=== PATIENT | female | born 1975 | race Caucasian/White ===

== ENCOUNTER 2017-04-16 08:09 | Emergency (ER) | payer OTHER, SELFPAY ==
[2017-04-16 08:14] VITALS: BP 158/83; PULSE 77; RESP 16; TEMP 36.8; O2SAT 97; BMI 43.8
--- NOTE | 2017-04-16 08:23 | XR_ITS ---
XR acute abdomen series HISTORY: ITS.REASON: EPIGASTRIC PAIN ORDERING PHYSICIAN: Zari Roldan MD PATIENT AGE: 42 years COMPARISON: None FINDINGS: A frontal view of the chest shows no acute finding. A small metallic density is present in the right axilla. There is a large laminated calcification in the right upper quadrant measuring 3.5 cm consistent with a gallstone. The bowel gas pattern is unremarkable. No evidence of intestinal obstruction or free air. A tubal occlusion device is present in the right pelvic region. There is mild osteitis pubis. IMPRESSION: Cholelithiasis
[2017-04-16 08:38] LABS: Basophils # 0.1 K/mm3 (0-0.2); Basophils % 0.5 % (0.1-2.0); Eosinophils # 0.3 K/mm3 (0.0-0.4); Eosinophils % 2.3 % (0.1-12.0); Hematocrit 47.1 % (37.0-47.0); Hemoglobin 15.6 g/dL (12.2-16.2); Lymphocytes # 2.6 K/mm3 (0.7-4.5); Lymphocytes % 23.3 K/mm3 (10-50); Mean Corpuscular HGB Conc 33.2 g/dL (31.8-35.4); Mean Corpuscular Hemoglobin 32.1 pg (27.0-31.2); Mean Corpuscular Volume 96.8 fl (81-99); Monocytes # 0.5 K/mm3 (0.1-1.0); Monocytes % 4.6 % (1.7-9.3); Neutrophils # 7.6 K/mm3 (1.8-7.8); Neutrophils % 69.2 % (37.0-80.0); Platelet Count 275 K/mm3 (142-424); Red Blood Count 4.87 M/mm3 (4.20-5.40)
--- NOTE | 2017-04-16 08:38 | HMH.EDABDPAI ---
ED Disposition Clinical Impression: Cholelithiasis, Xanthelasma, Tobacco abuse, Atypical chest pain Disposition: Home, Self-Care Condition on Discharge: Fair Instructions: DI for Acute Abdomen Additional Instructions: 1- The patient was scheduled for an outpatient stress test by Dr MORIS Quiroz. 2- The patient will see Dr Witt on 04/22 at 11 Am for a gall bladder assessment. 3- no greasy food. 4- more liquid and vegtetable diet. 5- return for any new sx, fever, vomitign, jaundice or worse pain for re evalution. Referrals: Jeremie Witt MD [Staff Physician] - - Critical Care Critical Care Time: No Attestation: On 04/16/17, the high probability of a clinically significant, sudden or life threatening deterioration of the following system(s) required my full and direct attention, intervention and personal management. The time I documented below is in addition to time spent performing reported procedures but includes the following listed in this critical care notation. Medical Decision Making - Medical Records Medical records reviewed: Yes: I reviewed the patient's medical records. Vital Signs: 04/16/17 08:14 Temperature 98.2 F Temperature Source Oral Pulse Rate [Right Brachial] 77 Respiratory Rate 16 Blood Pressure [Right Arm] 158/83 Blood Pressure Mean [Right Arm] 108 Blood Pressure Source [Right Arm] Manual Cuff/ Auscultation Blood Pressure Position [Right Arm] Sitting 02 Sat by Pulse Oximetry 97 Oxygen Delivery Method Room Air - Lab Data Lab results reviewed: Yes: I reviewed the patient's lab results. Lab Results 04/16/17 08:27: WBC 11.0 H, RBC 4.87, Hgb 15.6, Hct 47.1 H, MCV 96.8, MCH 32.1 H, MCHC 33.2, RDW 14.0, Plt Count 275, MPV 8.0, Neut % (Auto) 69.2, Lymph % (Auto) 23.3, [place] % (Auto) 4.6, Eos % (Auto) 2.3, Baso % (Auto) 0.5, Neut # (Auto) 7.6, Lymph # (Auto) 2.6, [place] # (Auto) 0.5, Eos # (Auto) 0.3, Baso # (Auto) 0.1 04/16/17 08:27: Sodium 139, Potassium 4.2, Chloride 106, Carbon Dioxide 27, Anion Gap 10.2, BUN 7, Creatinine 0.82, Estimated Creat Clear 88, Estimated GFR 77, Est GFR ( Amer) 93, Glucose 120 H, Calcium 8.6, Total Bilirubin 0.3, AST 11 L, ALT 25, Alkaline Phosphatase 67, Troponin I < 0.02, Total Protein 7.2, Albumin 3.1 L, Globulin 4.1 H, Albumin/Globulin Ratio 0.8 L, Amylase 28, Lipase 79 04/16/17 08:55: Stool Occult Blood Negative 04/16/17 11:00: Troponin I < 0.02 Result diagrams: 04/16/17 08:27 04/16/17 08:27 Orders (Tests/Meds): ED MEDICATIONS Discontinued Medications Generic Name Dose Route Start Last Admin Trade Name Freq PRN Reason Stop Dose Admin Simethicone 80 mg 04/16/17 08:26 04/16/17 08:27 Mylicon 80mg Chewable Tablet PO 04/16/17 08:27 80 mg ONCE ONE Administration ORDERS Category Date Time Status Cardiac Stress [CA Stress Test Req by /Jayshree] Routine Y 04/16/17 11:23 Ordered ECHO (Adult) Request [CA Echo Req by /Jayshree] Stat Y 04/16/17 09:37 Ordered - Radiology Data #1 Image(s): Chest, Abdomen Image Reviewed: Yes I reviewed the patient's radiology image Preliminary Findings: Abnormal Chest x-ray was within normal limits. Abdomen x-ray revealed calcified solitary gallbladder stone. - US Data US Images: Gallbladder ED US Reviewed: Yes: I discussed the US results w/the radiologist Findings Narrative: 09:55 construction services technician called back with report of gallbladder stones and sludge, common bile duct within normal limits. I called Dr. Sequeira on-call surgeon patient got scheduled for April 22 at 11 AM for an appointment. - ECG Data Tracing #1 Normal sinus rhythm 73/min incomplete right bundle branch no acute findings. ECG initial impression date: 04/16/17 ECG initial impression time: 08:47 - Ridge Inquiry Pt receiving controlled substance: No Ridge was queried for this patient: No Medical Decision Making Narrative: 0930 AM I called in Dr. Ambrosio the dehydrating press operator software applications architect,
--- NOTE | 2017-04-16 08:42 | ED_ITS ---
ED Disposition Clinical Impression: Cholelithiasis, Xanthelasma, Tobacco abuse, Atypical chest pain Disposition: Home, Self-Care Condition on Discharge: Fair Instructions: DI for Acute Abdomen Additional Instructions: 1- The patient was scheduled for an outpatient stress test by Dr MORIS Quiroz. 2- The patient will see Dr Witt on 04/22 at 11 Am for a gall bladder assessment. 3- no greasy food. 4- more liquid and vegtetable diet. 5- return for any new sx, fever, vomitign, jaundice or worse pain for re evalution. Referrals: Jeremie Witt MD [Staff Physician] - - Critical Care Critical Care Time: No Attestation: On 04/16/17, the high probability of a clinically significant, sudden or life threatening deterioration of the following system(s) required my full and direct attention, intervention and personal management. The time I documented below is in addition to time spent performing reported procedures but includes the following listed in this critical care notation. Medical Decision Making - Medical Records Medical records reviewed: Yes: I reviewed the patient's medical records. Vital Signs: 04/16/17 08:14 Temperature 98.2 F Temperature Source Oral Pulse Rate [Right Brachial] 77 Respiratory Rate 16 Blood Pressure [Right Arm] 158/83 Blood Pressure Mean [Right Arm] 108 Blood Pressure Source [Right Arm] Manual Cuff/ Auscultation Blood Pressure Position [Right Arm] Sitting 02 Sat by Pulse Oximetry 97 Oxygen Delivery Method Room Air - Lab Data Lab results reviewed: Yes: I reviewed the patient's lab results. Lab Results 04/16/17 08:27: WBC 11.0 H, RBC 4.87, Hgb 15.6, Hct 47.1 H, MCV 96.8, MCH 32.1 H , MCHC 33.2, RDW 14.0, Plt Count 275, MPV 8.0, Neut % (Auto) 69.2, Lymph % (Auto ) 23.3, [place] % (Auto) 4.6, Eos % (Auto) 2.3, Baso % (Auto) 0.5, Neut # (Auto) 7.6, Lymph # (Auto) 2.6, [place] # (Auto) 0.5, Eos # (Auto) 0.3, Baso # (Auto) 0.1 04/16/17 08:27: Sodium 139, Potassium 4.2, Chloride 106, Carbon Dioxide 27, Anion Gap 10.2, BUN 7, Creatinine 0.82, Estimated Creat Clear 88, Estimated GFR 77, Est GFR ( Amer) 93, Glucose 120 H, Calcium 8.6, Total Bilirubin 0.3, AST 11 L, ALT 25, Alkaline Phosphatase 67, Troponin I < 0.02, Total Protein 7.2 , Albumin 3.1 L, Globulin 4.1 H, Albumin/Globulin Ratio 0.8 L, Amylase 28, Lipase 79 04/16/17 08:55: Stool Occult Blood Negative 04/16/17 11:00: Troponin I < 0.02 Result diagrams: 04/16/17 08:27 04/16/17 08:27 Orders (Tests/Meds): ED MEDICATIONS Discontinued Medications Generic Name Dose Route Start Last Admin Trade Name Freq PRN Reason Stop Dose Admin Simethicone 80 mg 04/16/17 08:26 04/16/17 08:27 Mylicon 80mg Chewable Tablet PO 04/16/17 08:27 80 mg ONCE ONE Administration ORDERS Category Date Time Status Cardiac Stress [CA Stress Test Req by /Jayshree] Routine Y 04/16/17 11:23 Ordered ECHO (Adult) Request [CA Echo Req by /Jayshree] Stat Y 04/16/17 09:37 Ordered - Radiology Data #1 Image(s): Chest, Abdomen Image Reviewed: Yes I reviewed the patient's radiology image Preliminary Findings: Abnormal Chest x-ray was within normal limits. Abdomen x-ray revealed calcified solitary gallbladder stone. - US Data US Images: Gallbladder ED US Reviewed: Yes: I discussed the US results w/the radiologist Finding
[2017-04-16 08:47] LABS: Alanine Aminotransferase 25 U/L (12-78); Albumin Level 3.1 gm/dL (3.4-5.0); Albumin/Globulin Ratio 0.8 (1.1-1.8); Alkaline Phosphatase 67 U/L (46-116); Amylase 28 U/L (25-125); Anion Gap 10.2 mEq/L (5-15); Aspartate Amino Transferase 11 U/L (15-37); Bilirubin,Total 0.3 mg/dL (0.2-1.0); Blood Urea Nitrogen 7 mg/dL (7-18); Calcium 8.6 mg/dL (8.5-10.1); Carbon Dioxide 27 mmol/L (21.0-32.0); Chloride 106 mmol/L (98-107); Creatinine Clearance Estimated 88 mL/min (0-300); Creatinine,Serum 0.82 mg/dL (0.55-1.02); Estimated Glomerular Filt Rate 77 ml/min (>60); GFR (African American) 93 ML/MIN (>60); Globulin 4.1 gm/dl (1.3-3.2); Glucose 120 mg/dL (74-106); Lipase 79 u/L (73-393); Potassium 4.2 mmoL/L (3.5-5.1); Sodium 139 mmol/L (136-145); Total Protein,Serum 7.2 gm/dL (6.4-8.2)
--- NOTE | 2017-04-16 08:51 | US_ITS ---
US gallbladder HISTORY: Acute right upper quadrant pain ITS.REASON: epigastric pain ORDERING PHYSICIAN: Zari Roldan MD PATIENT AGE: 42 years COMPARISON: Abdominal series from the same day showing laminated gallstone FINDINGS: PANCREAS: Unremarkable. No obvious mass or abnormal fluid collection. No ductal dilatation LIVER: Diffuse fatty liver infiltration. RIGHT KIDNEY: Unremarkable. Normal size and echogenicity. No hydronephrosis GALLBLADDER: Large gallstone is present measuring up to 3.5 cm with some associated sludge within the gallbladder. No gallbladder wall thickening, pericholecystic fluid, or biliary dilatation evident. IMPRESSION: Cholelithiasis with small amount sludge within the gallbladder. Fatty liver
[2017-04-16 09:01] LABS: Occult Blood,Stool Negative (Negative)
--- NOTE | 2017-04-16 09:06 | PC.NURSE ---
Radiology notified of need for Ultrasound of Gallbladder.
--- NOTE | 2017-04-16 09:06 | PC.NURSE ---
Assisted Dr Roldan with rectal exam for occult stool at 0855
[2017-04-16 09:10] LABS: Troponin I < 0.02 ng/ml (0.00-0.06)
--- NOTE | 2017-04-16 09:34 | PC.NURSE ---
pt going to ultrasound at this time
--- NOTE | 2017-04-16 09:38 | PC.NURSE ---
PT TO ULTRASOUND AT THIS TIME
--- NOTE | 2017-04-16 09:42 | HMH.CNCARD ---
History of Present Illness Consult date: 04/16/17 Requesting physician: Zari Roldan Consult reason: chest pain Chief complaint: chest pain Additional Medical History:: 1. Tobacco use one half pack per day for 20 years 2. Suspected hyperlipidemia with xanthelasma noted 3. Obesity History of present illness: 42-year-old white female with history of tobacco use presented to the emergency department for chest pain that woke from sleep. She describes a substernal epigastric discomfort that radiates through to the back that woke her from sleep and last for about 2 hours this morning. Symptoms resolved after coming to the emergency room and being given GI medication and belching. Initial troponin is normal. EKG is unremarkable. Patient relates history of reflux symptoms and some abdominal discomfort with fried foods. Patient relates eating a chili dog last evening. Cardiology consulted for further evaluation. She denies any history of exertional chest pain or shortness of breath. She is very active at a snf. [facility] History Medical History: Denies:: Cancer, Diabetes Mellitus Type 1, Diabetes Mellitus Type 2, MRSA Other Surgeries: Yes: No Previous Surgery Amputation: No Fractures: No - *Social History Educational Level: Completed High School Smoking Status: Current every day smoker Tobacco Type: cigarettes # Packs/Day (cigarettes): 1 Alcohol Intake: never Substance Use Type: marijuana Last Used Substance: hours (ago) - Psychiatric History Expresses thoughts of harming self/others: None Suicide Plan Description: No Plan *Family Hx:: No significant family history Meds Home Medications Medication Instructions Recorded Confirmed Type No Known Home Medications [No 04/16/17 04/16/17 History Known Home Medications] Allergies Allergy/AdvReac Type Severity Reaction Status Date / Time No Known Allergies Allergy Verified 04/16/17 08:22 Review of Systems - *Cardiovascular Reports chest pain - *Respiratory Denies shortness of breath, Denies shortness of breath with activity - *Gastrointestinal Reports abdominal pain - *Musculoskeletal Reports joint pain Exam Vital signs and Labs for Last 24 Hours: Temp Pulse Resp BP Pulse Ox 98.2 F 77 16 158/83 97 04/16/17 08:14 04/16/17 08:14 04/16/17 08:14 04/16/17 08:14 04/16/17 08:14 Laboratory Results - last 24 hr 04/16/17 08:27: WBC 11.0 H, RBC 4.87, Hgb 15.6, Hct 47.1 H, MCV 96.8, MCH 32.1 H, MCHC 33.2, RDW 14.0, Plt Count 275, MPV 8.0, Neut % (Auto) 69.2, Lymph % (Auto) 23.3, [place] % (Auto) 4.6, Eos % (Auto) 2.3, Baso % (Auto) 0.5, Neut # (Auto) 7.6, Lymph # (Auto) 2.6, [place] # (Auto) 0.5, Eos # (Auto) 0.3, Baso # (Auto) 0.1 04/16/17 08:27: Sodium 139, Potassium 4.2, Chloride 106, Carbon Dioxide 27, Anion Gap 10.2, BUN 7, Creatinine 0.82, Estimated Creat Clear 88, Estimated GFR 77, Est GFR ( Amer) 93, Glucose 120 H, Calcium 8.6, Total Bilirubin 0.3, AST 11 L, ALT 25, Alkaline Phosphatase 67, Troponin I < 0.02, Total Protein 7.2, Albumin 3.1 L, Globulin 4.1 H, Albumin/Globulin Ratio 0.8 L, Amylase 28, Lipase 79 04/16/17 08:55: Stool Occult Blood Negative I & O for Last 24 hours: Intake & Output 04/13/17 04/14/17 04/15/17 04/16/17 11:59 11:59 11:59 11:59 Weight 280 lb - *Routine Neck Exam Present: supple. Absent: JVD, carotid bruit - *Routine Respiratory Exam Present: CTA bilaterally - *Routine Cardiovascular Exam Present: RRR. Absent: murmur, gallop, rubs - *Routine Abdominal Exam Present: soft. Absent: tenderness - *Routine Extremities Exam Absent: edema - *Routine Neurological Exam Present: alert, oriented X3, moving all extremities Assessment and Plan (1) Non-cardiac chest pain Current visit: Yes Status: Acute Category: Medical Code(s): R07.89 - Other chest pain (2) Tobacco use Current visit: Yes Status: Acute Category: Social Hx Code(s): Z72.0 - Tobacco use
[2017-04-16 11:43] LABS: Troponin I < 0.02 ng/ml (0.00-0.06)
--- NOTE | 2017-04-16 11:52 | PC.NURSE ---
Pt to stress test at this time.
[2017-04-16 14:10] VITALS: BP 125/70; PULSE 82; RESP 18; TEMP 36.8; O2SAT 98
--- NOTE | 2017-05-07 09:48 | P.CONS_ITS ---
History of Present Illness Consult date: 04/16/17 Requesting physician: Zari Roldan Consult reason: chest pain Chief complaint: chest pain Additional Medical History:: 1. Tobacco use one half pack per day for 20 years 2. Suspected hyperlipidemia with xanthelasma noted 3. Obesity History of present illness: 42-year-old white female with history of tobacco use presented to the emergency department for chest pain that woke from sleep. She describes a substernal epigastric discomfort that radiates through to the back that woke her from sleep and last for about 2 hours this morning. Symptoms resolved after coming to the emergency room and being given GI medication and belching. Initial troponin is normal. EKG is unremarkable. Patient relates history of reflux symptoms and some abdominal discomfort with fried foods. Patient relates eating a chili dog last evening. Cardiology consulted for further evaluation. She denies any history of exertional chest pain or shortness of breath. She is very active at a jail. [facility] History Medical History: Denies:: Cancer, Diabetes Mellitus Type 1, Diabetes Mellitus Type 2, MRSA Other Surgeries: Yes: No Previous Surgery Amputation: No Fractures: No - *Social History Educational Level: Completed High School Smoking Status: Current every day smoker Tobacco Type: cigarettes # Packs/Day (cigarettes): 1 Alcohol Intake: never Substance Use Type: marijuana Last Used Substance: hours (ago) - Psychiatric History Expresses thoughts of harming self/others: None Suicide Plan Description: No Plan *Family Hx:: No significant family history Meds Home Medications Medication Instructions Recorded Confirmed Type No Known Home Medications [No 04/16/17 04/16/17 History Known Home Medications] Allergies Allergy/AdvReac Type Severity Reaction Status Date / Time No Known Allergies Allergy Verified 04/16/17 08:22 Review of Systems - *Cardiovascular Reports chest pain - *Respiratory Denies shortness of breath, Denies shortness of breath with activity - *Gastrointestinal Reports abdominal pain - *Musculoskeletal Reports joint pain Exam Vital signs and Labs for Last 24 Hours: Temp Pulse Resp BP Pulse Ox 98.2 F 77 16 158/83 97 04/16/17 08:14 04/16/17 08:14 04/16/17 08:14 04/16/17 08:14 04/16/17 08:14 Laboratory Results - last 24 hr 04/16/17 08:27: WBC 11.0 H, RBC 4.87, Hgb 15.6, Hct 47.1 H, MCV 96.8, MCH 32.1 H , MCHC 33.2, RDW 14.0, Plt Count 275, MPV 8.0, Neut % (Auto) 69.2, Lymph % (Auto ) 23.3, [place] % (Auto) 4.6, Eos % (Auto) 2.3, Baso % (Auto) 0.5, Neut # (Auto) 7.6, Lymph # (Auto) 2.6, [place] # (Auto) 0.5, Eos # (Auto) 0.3, Baso # (Auto) 0.1 04/16/17 08:27: Sodium 139, Potassium 4.2, Chloride 106, Carbon Dioxide 27, Anion Gap 10.2, BUN 7, Creatinine 0.82, Estimated Creat Clear 88, Estimated GFR 77, Est GFR ( Amer) 93, Glucose 120 H, Calcium 8.6, Total Bilirubin 0.3, AST 11 L, ALT 25, Alkaline Phosphatase 67, Troponin I < 0.02, Total Protein 7.2 , Albumin 3.1 L, Globulin 4.1 H, Albumin/Globulin Ratio 0.8 L, Amylase 28, Lipase 79 04/16/17 08:55: Stool Occult Blood Negative I & O for Last 24 hours: Intake & Output 04/13/17 04/14/17 04/15/17 04/16/17 11:59 11:59 11:59 11:59 Weight 280 lb - *Routine Neck Exam Present: supple. Absent: JVD, carotid bruit - *Routine Respiratory Exam Pre
== END 2017-04-16 14:10 | disposition home or self-care (01) ==
PROVIDERS: Emergency Provider Emergency Medicine; Family Provider Family Medicine
DX: K80.20 Calculus of gallbladder without cholecystitis without obstruction (principal); H02.60 Xanthelasma of unspecified eye, unspecified eyelid; F17.210 Nicotine dependence, cigarettes, uncomplicated; R07.89 Other chest pain
CPT/HCPCS: 74021; 76705; 80053; 82150; 82272; 83690; 84484; 85025; 93005; 93017; 93041; 93306; 99283; G0328

== ENCOUNTER 2019-12-19 16:01 | Emergency (ER) | payer SELFPAY ==
[2019-12-19 16:30] VITALS: BP 00/00; PULSE 0; RESP 0; TEMP -17.7; TEMP 0
== END 2019-12-19 16:31 | disposition left against medical advice (07) ==
PROVIDERS: Emergency Provider Nurse Practitioner
DX: Z53.21 Procedure and treatment not carried out due to patient leaving prior to being seen by health care provider (principal)

== ENCOUNTER 2023-12-02 09:53 | Outpatient (CLI) | payer MEDICAID, SELFPAY ==
[2023-12-02 19:07] LABS: Hemoglobin A1C 12.1 % (4.0-6.0)
[2023-12-02 19:12] LABS: Alanine Aminotransferase 39 U/L (12-78); Albumin Level 4.1 g/dl (3.5-5.0); Albumin/Globulin Ratio 1.2 (1.1-1.8); Alkaline Phosphatase 87 U/L (38-126); Anion Gap 8.9 mEq/L (5-15); Aspartate Amino Transferase 59 U/L (14-36); Bilirubin,Total 0.7 mg/dl (0.2-1.3); Blood Urea Nitrogen 5 mg/dl (7-17); Calcium 9.2 mg/dl (8.4-10.2); Carbon Dioxide 24 mmol/L (22.0-30.0); Chloride 102 mmol/L (98-107); Chol/HDL Ratio 6.5 (1-3.5); Cholesterol 188 mg/dl (140-200); Estimated Glomerular Filt Rate 90 ml/min (>60); GFR (African American) 109 ML/MIN (>60); Globulin 3.4 g/dL (1.3-3.2); HDL Cholesterol 29 mg/dl (40-60); Potassium 3.9 mmoL/L (3.5-5.1); Sodium 131 mmol/L (136-145); Total Protein,Serum 7.5 g/dl (6.3-8.2); Triglycerides 365 mg/dl (30-150); VLDL Cholesterol 73 mg/dL (0-40)
[2023-12-02 19:55] LABS: 25-OH Vitamin D, Total < 12.8 ng/mL (30-100)
[2023-12-02 20:00] LABS: Basophils # 0.1 K/mm3 (0-0.2); Basophils % 1.2 % (0.1-2.0); Eosinophils # 0.3 K/mm3 (0.0-0.4); Eosinophils % 3.7 % (0.1-12.0); Hemoglobin 15.7 g/dL (12.2-16.2); Lymphocytes % 38.3 % (10-50); Mean Corpuscular HGB Conc 33.4 g/dL (31.8-35.4); Mean Corpuscular Hemoglobin 31.9 pg (27.0-31.2); Mean Corpuscular Volume 95.6 fl (81-99); Monocytes # 0.4 K/mm3 (0.1-1.0); Monocytes % 4.8 % (1.7-9.3); Platelet Count 142 K/mm3 (142-424); Red Blood Count 4.91 M/mm3 (4.20-5.40); Red Cell Distribution Width 13.4 % (11.5-17.5); White Blood Count 7.7 K/mm3 (4.8-10.8)
[2023-12-02 21:39] LABS: Glucose 413 mg/dl (74-100)
[2023-12-02 22:01] LABS: Thyroid Stimulating Hormone 1.92 uIU/mL (0.465-4.68)
[2023-12-02 22:14] LABS: HIV (1&2) Antibody Rapid NONREACTIVE (NONREACTIVE)
[2023-12-04 08:22] LABS: HCV Ab Non Reactive (Non Reactive)
== END 2023-12-02 23:59 | disposition home or self-care (01) ==
LOC: LAB.DROPOF 12-03 09:53
PROVIDERS: PCP Family Medicine; Visit Provider Family Medicine
DX: E66.01 Morbid (severe) obesity due to excess calories (principal); Z68.41 Body mass index [BMI] 40.0-44.9, adult; R53.83 Other fatigue; Z13.1 Encounter for screening for diabetes mellitus
CPT/HCPCS: 80050; 80053; 80061; 82306; 83036; 84443; 85025; 86803; 87389

== ENCOUNTER 2024-03-28 12:02 | Outpatient (CLI) | payer MEDICAID, SELFPAY ==
[2024-03-28 18:50] LABS: Hemoglobin A1C 5.6 % (4.0-6.0)
[2024-03-28 20:48] LABS: Alanine Aminotransferase 40 U/L (12-78); Albumin Level 4.4 g/dl (3.5-5.0); Albumin/Globulin Ratio 1.5 (1.1-1.8); Alkaline Phosphatase 71 U/L (38-126); Anion Gap 13.3 mEq/L (5-15); Aspartate Amino Transferase 53 U/L (14-36); Bilirubin,Total 0.7 mg/dl (0.2-1.3); Blood Urea Nitrogen 9 mg/dl (7-17); Calcium 9.3 mg/dl (8.4-10.2); Carbon Dioxide 27 mmol/L (22.0-30.0); Chloride 104 mmol/L (98-107); Chol/HDL Ratio 3.6 (1-3.5); Cholesterol 122 mg/dl (140-200); Estimated Glomerular Filt Rate 77 ml/min (>60); GFR (African American) 93 ML/MIN (>60); Globulin 2.9 g/dL (1.3-3.2); Glucose 81 mg/dl (74-100); HDL Cholesterol 34 mg/dl (40-60); Potassium 4.3 mmoL/L (3.5-5.1); Sodium 140 mmol/L (136-145); Total Protein,Serum 7.3 g/dl (6.3-8.2); Triglycerides 196 mg/dl (30-150); VLDL Cholesterol 39 mg/dL (0-40)
[2024-03-28 20:59] LABS: Direct LDL Cholesterol 44.12 mg/dL (100-129)
== END 2024-03-28 23:59 | disposition home or self-care (01) ==
LOC: LAB.DROPOF 03-31 12:03
PROVIDERS: PCP Family Medicine; Visit Provider Family Medicine
DX: E78.5 Hyperlipidemia, unspecified (principal); I10 Essential (primary) hypertension; E11.9 Type 2 diabetes mellitus without complications; Z72.0 Tobacco use; Z79.85 Long-term (current) use of injectable non-insulin antidiabetic drugs
CPT/HCPCS: 80053; 80061; 83036

== ENCOUNTER 2024-12-30 10:47 | Outpatient (CLI) | payer MEDICAID, SELFPAY ==
[2024-12-30 19:07] LABS: Hematocrit 42.8 % (37.0-47.0); Hemoglobin 14.5 g/dL (12.2-16.2); Immature Granulocytes % 0.4 %; Mean Corpuscular HGB Conc 33.9 g/dL (31.8-35.4); Mean Corpuscular Hemoglobin 31.5 pg (27.0-31.2); Mean Corpuscular Volume 92.8 fl (81-99); Nucleated Red Blood Cells % 0 %; Platelet Count 202 K/mm3 (142-424); Red Blood Count 4.61 M/mm3 (4.20-5.40); Red Cell Distribution Width-SD 46.5 fL; White Blood Count 11.2 K/mm3 (4.8-10.8)
[2024-12-30 19:23] LABS: Alanine Aminotransferase 31 U/L (12-78); Albumin Level 4.3 g/dl (3.5-5.0); Albumin/Globulin Ratio 1.2 (1.1-1.8); Alkaline Phosphatase 71 U/L (38-126); Anion Gap 8.8 mEq/L (5-15); Aspartate Amino Transferase 39 U/L (14-36); Bilirubin,Total 0.6 mg/dl (0.2-1.3); Blood Urea Nitrogen 12 mg/dl (7-17); Calcium 9.5 mg/dl (8.4-10.2); Carbon Dioxide 27 mmol/L (22.0-30.0); Chloride 103 mmol/L (98-107); Creatinine,Serum 0.70 mg/dl (0.52-1.04); Estimated Glomerular Filt Rate 89 ml/min (>60); GFR (African American) 108 ML/MIN (>60); Globulin 3.7 g/dL (1.3-3.2); Glucose 124 mg/dl (74-100); Potassium 3.8 mmoL/L (3.5-5.1); Sodium 135 mmol/L (136-145); Total Protein,Serum 8.0 g/dl (6.3-8.2)
[2024-12-30 19:39] LABS: 25-OH Vitamin D, Total < 12.8 ng/mL (30-100)
[2024-12-30 19:54] LABS: Thyroid Stimulating Hormone 1.55 uIU/mL (0.465-4.68)
[2024-12-30 20:03] LABS: Hemoglobin A1C 5.7 % (4.0-6.0)
[2024-12-30 20:13] LABS: Vitamin B12 378 pg/mL (239-931)
== END 2024-12-30 23:59 ==
LOC: LAB.DROPOF 01-02 10:47
PROVIDERS: PCP Family Medicine; Visit Provider Family Medicine
DX: E55.9 Vitamin D deficiency, unspecified (principal); E11.9 Type 2 diabetes mellitus without complications
CPT/HCPCS: 80053; 82043; 82306; 82570; 82607; 83036; 84443; 85025